=== PATIENT | male | born 1960 | race Hispanic/Latino ===

== ENCOUNTER → 2017-11-04 | Outpatient (CLI) | payer OTHER ==
--- NOTE | 2017-11-04 13:13 | Diagnostic Imaging Report ---
PROCEDURE: Frontal and lateral views of the chest. COMPARISON: None. INDICATIONS: ANNUAL PHYSICAL FINDINGS: Lines/tubes: None. Lungs: The lungs are well inflated and clear. There is no evidence of pneumonia or pulmonary edema. Pleura: There is no pleural effusion or pneumothorax. Heart and mediastinum: The heart and the mediastinum are normal. Bones: No acute bony abnormality. Degenerative changes of the thoracic spine. IMPRESSION: No acute radiographic abnormality. Dictated by: Arik Stevens M.D. on 11/04/2017 at 13:13 Electronically approved by: Arik Stevens M.D. on 11/04/2017 at 13:13
== END ==
LOC: RAD 12:17
PROVIDERS: ATTEND Internal Medicine
DX: Z00.00 Encounter for general adult medical examination without abnormal findings (principal)
CPT/HCPCS: 71046

== ENCOUNTER → 2017-11-26 | Outpatient (CLI) | payer OTHER ==
--- NOTE | 2017-11-26 17:13 | Diagnostic Imaging Report ---
PROCEDURE:L-SPINE COMPLETE COMPARISON:None. INDICATIONS:LOWER BACK PAIN FINDINGS: There are 5 lumbar-type vertebral bodies. The vertebral bodies are well-aligned without evidence of spondylolisthesis. Vertebral body heights are maintained. There are no fractures, lytic or blastic lesions. Mild disc space loss. Multilevel mild degenerative changes are seen. Bridging anterior osteophytosis is seen in the low thoracic/upper lumbar spine. Facet arthropathy, especially at L4-L5 and L5-S1 levels. There are also degenerative changes of the spine. CONCLUSION: No acute lumbar spine abnormality. Multilevel mild degenerative changes. Dictated by: Ryan Sena M.D. on 11/26/2017 at 17:13 Electronically approved by: Ryan Sena M.D. on 11/26/2017 at 17:13
== END | disposition home or self-care (01) ==
LOC: RAD 16:22
PROVIDERS: ATTEND Internal Medicine
DX: M54.5 Low back pain (principal); M47.816 Spondylosis without myelopathy or radiculopathy, lumbar region; M47.817 Spondylosis without myelopathy or radiculopathy, lumbosacral region
CPT/HCPCS: 72110